=== PATIENT | male | born 1955 | race Caucasian/White ===

== ENCOUNTER → 2021-11-23 15:14 | Outpatient (CLI) | payer OTHER, SELFPAY ==
--- NOTE | ~2021-11-23 | XR_ITS ---
EXAMINATION: XR foot LT standing 2V, XR foot RT standing 2V DATE: 11/23/2021 16:42 INDICATION: Rheumatoid arthritis with rheumatoid factor TECHNIQUE: 1. Standing dorsoplantar and lateral views of the left foot were obtained. 2. Standing dorsoplantar and lateral views of the right foot were obtained. COMPARISON: None. FINDINGS: Normal alignment at the bilateral feet. No fracture. Mild osteoarthritis at the bilateral first metat arsophalangeal and a few interphalangeal joints. Normal joint spaces at the bilateral ankles, mid and hindfeet. No erosions to suggest inflammatory arthritis such as rheumatoid. Soft tissues are unremar kable. IMPRESSION: 1. 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 Reviewed, dictated and finalized at location B. IMPRESSION: 1. 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
--- NOTE | ~2021-11-23 | XR_ITS ---
EXAM: XR knee RT 3V DATE: 11/23/2021 16:43 HISTORY: M05.749 - Rheumatoid arthritis with rheumatoid factor of ... . COMPARISON: None available. FINDINGS: Normal mineralization. No fracture or dislocation. No lytic or blastic lesion. Moderate le ft knee medial joint space narrowing. Tricompartmental osteophytosis, mild in the right knee, moderat e in the patellofemoral and medial compartments of the left knee. No erosion or periosteal change. Sm all-volume left knee joint effusion. IMPRESSION: Moderate left and mild right knee osteoarthritis. Small left knee joint effusion. Reviewed, dictated and finalized at location K. IMPRESSION: Moderate left and mild right knee osteoarthritis. Small left knee j oint effusion.
--- NOTE | ~2021-11-23 | XR_ITS ---
EXAM: XR knee LT 3V DATE: 11/23/2021 16:43 HISTORY: M05.749 - Rheumatoid arthritis with rheumatoid factor of ... . COMPARISON: None available. FINDINGS: Normal mineralization. No fracture or dislocation. No lytic or blastic lesion. Moderate le ft knee medial joint space narrowing. Tricompartmental osteophytosis, mild in the right knee, moderat e in the patellofemoral and medial compartments of the left knee. No erosion or periosteal change. Sm all-volume left knee joint effusion. IMPRESSION: Moderate left and mild right knee osteoarthritis. Small left knee joint effusion. Reviewed, dictated and finalized at location K. IMPRESSION: Moderate left and mild right knee osteoarthritis. Small left knee j oint effusion.
--- NOTE | ~2021-11-23 | XR_ITS ---
EXAMINATION: HAND-DEREK ARTHRITIS 3+VIEWS DATE: 11/23/2021 16:42 INDICATION: Rheumatoid arthritis with rheumatoid factor TECHNIQUE: Posteroanterior, lateral, and oblique views of the left and of the right hands as well as a ballcatchers view of both hands were obtained. COMPARISON: None. FINDINGS: Slight ulnar subluxation at the left fifth proximal interphalangeal joint and associated mild osteoar thritis likely secondary to prior trauma. Alignment is otherwise normal. No fracture. Additional mild osteoarthritis at the right first metacarpophalangeal joint. Minimal osteoarthritis at a few of the bilateral distal interphalangeal joints. No erosions to suggest inflammatory arthritis such as rheuma toid. Joint spaces are normal. Soft tissues are unremarkable. IMPRESSION: 1. Mild ulnar subluxation and mild osteoarthritis at the left fifth proximal interphalangeal joint is likely sequela of old trauma. 2. Additional mild osteoarthritis at the right first metacarpophalangeal joint and minimal osteoarthr itis at a few distal interphalangeal joints. No findings to suggest an inflammatory arthritis such as rheumatoid arthritis. Reviewed, dictated and finalized at location B. IMPRESSION: 1. Mild ulnar subluxation and mild osteoarthritis at the left fifth proximal in terphalangeal joint is likely sequela of old trauma. 2. Additional mild osteoarthritis at the right first metacarpophalangeal joint and minimal osteoarthritis at a few distal interphalangeal joints. No findings to suggest an inflammatory arthritis such as rheumatoid arthritis.
--- NOTE | ~2021-11-23 | XR_ITS ---
EXAMINATION: XR sacroiliac joints min 3V DATE: 11/23/2021 16:42 INDICATION: Rheumatoid arthritis with rheumatoid factor TECHNIQUE: AP and left and right oblique views of the sacroiliac joints were obtained. COMPARISON: None. FINDINGS: Mild right-sided and mild to moderate left-sided sacroiliac osteoarthritis. Contrast by non uniform joint space narrowing. No erosions or subarticular sclerosis to suggest an inflammatory sacro iliitis. Bilateral hip joint spaces are relatively preserved. Moderate lumbar spondylosis. IMPRESSION: 1. 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 No findings to suggest an inflamma tory sacroiliitis. Reviewed, dictated and finalized at location B. IMPRESSION: 1. 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 No findings to suggest an inflammatory sacroiliitis.
== END ==
PROVIDERS: PCP Internal Medicine; Visit Provider Internal Medicine
DX: M05.749 Rheumatoid arthritis with rheumatoid factor of unspecified hand without organ or systems involvement (principal); M19.071 Primary osteoarthritis, right ankle and foot; M19.072 Primary osteoarthritis, left ankle and foot; M53.3 Sacrococcygeal disorders, not elsewhere classified; M19.041 Primary osteoarthritis, right hand; M19.042 Primary osteoarthritis, left hand; M17.0 Bilateral primary osteoarthritis of knee; M25.462 Effusion, left knee
CPT/HCPCS: 72202; 73130; 73562; 73620